=== PATIENT | female | born 1980 | race Caucasian/White ===

== ENCOUNTER 2018-03-08 23:54 | Emergency (ER) | payer MEDICAID ==
[~2018-03-08] VITALS: Ht 162.6 cm; Wt 63.6 kg
[~2018-03-08 23:54] MED LIST: CLA10T PO; CLIN150C2 PO; DIPH25CA83 PO; HYDR-568 PO; IBUP-1572 PO; IBUP-1984 PO; LEVO25TA50 PO; METH4TAB81 PO; QUET-1 PO; [UNRECOGNIZED DRUG - OTHER] PO; [UNRECOGNIZED DRUG - OTHER] PO
[2018-03-08 23:56] VITALS: BP 116/66
[2018-03-09] MEDS ORDERED: sulfamethoxazole/trimethoprim DS (800/160mg) tablet PO ONE (01:45)
[2018-03-09] MEDS ORDERED: TETanus/Pertussis (Acell)/Diphther VAC/PF (Tdap-Adult) 0.5ml syringe IMVAC ONE (01:45)
[2018-03-09] MEDS ORDERED: MUPI22OI30 TOP ×2 (01:47→11:34)
[2018-03-09] MEDS ORDERED: BACDS PO (01:47)
[2018-03-09] MEDS ORDERED: SULF1TAB49 PO (11:34)
== END 2018-03-09 02:30 | disposition home or self-care (01) ==
LOC: ER 23:54
DX: L03.116 Cellulitis of left lower limb (principal); L03.115 Cellulitis of right lower limb; I10 Essential (primary) hypertension; L08.9 Local infection of the skin and subcutaneous tissue, unspecified; F17.200 Nicotine dependence, unspecified, uncomplicated; F15.10 Other stimulant abuse, uncomplicated; F12.90 Cannabis use, unspecified, uncomplicated; Z56.0 Unemployment, unspecified; Z98.51 Tubal ligation status; Z79.899 Other long term (current) drug therapy; Z88.1 Allergy status to other antibiotic agents; Z88.8 Allergy status to other drugs, medicaments and biological substances; Z86.14 Personal history of Methicillin resistant Staphylococcus aureus infection
CPT/HCPCS: 90471; 90715; 99283; A6449

== ENCOUNTER 2018-10-16 00:04 | Emergency (ER) | payer MEDICAID ==
[~2018-10-16] VITALS: Ht 162.6 cm; Wt 51.9 kg
[~2018-10-16 00:04] MED LIST changes: +HYDR-4384 PO; -HYDR-568 PO; +MUPI15CR TOP
[2018-10-16 00:08] VITALS: BP 124/58
[2018-10-16] MEDS ORDERED: ibuprofen 200mg tablet PO ONE (01:10)
[2018-10-16] MEDS ORDERED: benzonatate 100mg capsule PO ONE (01:10)
[2018-10-16] MEDS ORDERED: pseudoephedrine 30mg tablet PO ONE (01:10)
[2018-10-16] MEDS ORDERED: ondansetron 4mg rapidly disintigrating tab PO STA (01:39)
--- NOTE | 2018-10-16 01:40 | NUR ---
PT C/O NAUSEA, ORDERED ZOFRAN ODT
[2018-10-16] MEDS ORDERED: BENZ-16 PO (02:31)
== END 2018-10-16 02:56 | disposition home or self-care (01) ==
LOC: ER 00:05
DX: J06.9 Acute upper respiratory infection, unspecified (principal); R07.89 Other chest pain; F12.90 Cannabis use, unspecified, uncomplicated; F17.200 Nicotine dependence, unspecified, uncomplicated; Z72.89 Other problems related to lifestyle; Z88.8 Allergy status to other drugs, medicaments and biological substances; Z98.890 Other specified postprocedural states; Z59.0 Homelessness
CPT/HCPCS: 71046; 99284

== ENCOUNTER 2019-02-25 19:38 | Emergency (ER) | payer MEDICAID ==
[~2019-02-25] VITALS: Ht 162.6 cm; Wt 53.1 kg
[2019-02-25 19:41] VITALS: BP 133/86
[2019-02-25] MEDS ORDERED: DOXY100C43 PO (20:05)
[2019-02-25] MEDS ORDERED: CEPH-571 PO (20:05)
== END 2019-02-25 20:19 | disposition home or self-care (01) ==
LOC: ER 19:39
DX: S00.86XA Insect bite (nonvenomous) of other part of head, initial encounter (principal); L03.211 Cellulitis of face; K02.9 Dental caries, unspecified; F12.90 Cannabis use, unspecified, uncomplicated; Z98.51 Tubal ligation status; Z56.0 Unemployment, unspecified; Z88.8 Allergy status to other drugs, medicaments and biological substances; Z79.899 Other long term (current) drug therapy; W57.XXXA Bitten or stung by nonvenomous insect and other nonvenomous arthropods, initial encounter; Y93.89 Activity, other specified; Y92.89 Other specified places as the place of occurrence of the external cause; Y99.8 Other external cause status
CPT/HCPCS: 99283

== ENCOUNTER 2019-07-07 12:47 | Emergency (ER) | payer MEDICAID ==
[~2019-07-07] VITALS: Ht 162.6 cm; Wt 59.5 kg
[~2019-07-07 12:47] MED LIST changes: +CEPH-571 PO
[2019-07-07 13:19] LABS: URINE HCG NEGATIVE (NEG)
[2019-07-07 13:21] LABS: CLARITY,URINE SLIGHTLY CLOUDY (Clear); COLOR,URINE YELLOW (Yellow); GLUCOSE, URINE NEGATIVE (Neg); KETONES,URINE NEGATIVE (Neg); LEUKOCYTE ESTERASE ,URINE SMALL (Neg); NITRITES, URINE NEGATIVE (Neg); OCCULT BLOOD,URINE NEGATIVE (Neg); PROTEIN,URINE 30 mg/dl (Neg); UROBILINOGEN,URINE 0.2 E.U/dL (0.2-1.0)
[2019-07-07 13:23] LABS: UA COLLECTION TYPE CLN CATCH MIDSTREAM
[2019-07-07 13:33] LABS: BASOPHILS # (AUTO) 0.1 X10'3 (0-0.2); BASOPHILS % (AUTO) 0.7 % (0-1); EOSINOPHILS % (AUTO) 0.4 % (0-6); HEMATOCRIT 36.3 % (35.0-45.0); HEMOGLOBIN 11.5 g/dl (12.0-16.0); LYMPHOCYTES # (AUTO) 1.8 X10'3 (1.1-4.8); LYMPHOCYTES % (AUTO) 25.2 % (21-51); MEAN CORPUSCULAR HEMOGLOBIN 23.5 PG (27.0-31.0); MEAN CORPUSCULAR HGB CONC 31.8 g/dL (33.0-36.5); MEAN CORPUSCULAR VOLUME 73.8 FL (78-98); MEAN PLATELET VOLUME 7.6 FL (7.4-10.4); MONOCYTES # (AUTO) 0.5 X10'3 (0-0.9); MONOCYTES % (AUTO) 7.2 % (2-12); NEUTROPHILS # (AUTO) 4.6 X10'3 (1.8-7.7); NEUTROPHILS % (AUTO) 66.5 % (42-75); PLATELET COUNT 358 X10'3 (140-440); RED BLOOD COUNT 4.92 X10'6 (4.20-5.60); RED CELL DISTRIBUTION WIDTH 17.4 % (11.5-14.5)
[2019-07-07 13:43] LABS: MUCUS STRANDS MODERATE /LPF (Neg)
[2019-07-07 13:44] LABS: GLUCOSE 98 MG/DL (70-104)
[2019-07-07 13:44] LABS: SQUAMOUS EPITHELIAL CELL,UR MODERATE /LPF (FEW)
[2019-07-07 13:45] LABS: ALANINE AMINOTRANSFERASE 20 U/L (12-78); ALBUMIN 3.8 G/DL (3.4-5.0); ALBUMIN/GLOBULIN RATIO 0.9 (1.1-1.5); ALKALINE PHOSPHATASE 100 IU/L (46-116); ANION GAP 9 (8-16); ASPARTATE AMINO TRANSFERASE 29 U/L (10-37); BILIRUBIN,TOTAL 0.6 MG/DL (0.1-1.0); BLOOD UREA NITROGEN 7 MG/DL (7-18); BUN/CREATININE RATIO 10.8 (6.6-38.0); CALCIUM 9.3 MG/DL (8.5-10.1); CHLORIDE 100 MMOL/L (99-107); CREATININE 0.65 MG/DL (0.40-0.90); LIPASE 130 U/L (73-393); POTASSIUM 3.6 MMOL/L (3.5-5.1); SODIUM 135 MMOL/L (135-145); TOTAL CARBON DIOXIDE 26.1 MMOL/L (24-32); TOTAL PROTEIN 8.1 G/DL (6.4-8.2); eGFR > 90 ML/MIN
[2019-07-07 13:46] LABS: COARSE GRANULAR CAST 0-3 /LPF (NEGATIVE)
[2019-07-07 13:47] LABS: BACTERIA,URINE 1+ /HPF (Neg); RBC,URINE NONE SEEN /HPF (0-2); WBC,URINE 0-4 /HPF (0-4)
[2019-07-07] MEDS ORDERED: ondansetron 4mg rapidly disintigrating tab PO ONE (14:10)
[2019-07-07] MEDS ORDERED: ONDA4TAB12 PO (15:01)
[2019-07-07 15:11] VITALS: BP 109/86
== END 2019-07-07 15:12 | disposition home or self-care (01) ==
LOC: ER 12:48
DX: N20.0 Calculus of kidney (principal); F15.10 Other stimulant abuse, uncomplicated; F17.210 Nicotine dependence, cigarettes, uncomplicated; F12.90 Cannabis use, unspecified, uncomplicated; F10.99 Alcohol use, unspecified with unspecified alcohol-induced disorder; Z98.51 Tubal ligation status; Z56.0 Unemployment, unspecified; Z88.8 Allergy status to other drugs, medicaments and biological substances; Z79.899 Other long term (current) drug therapy; Y90.9 Presence of alcohol in blood, level not specified
CPT/HCPCS: 36415; 74176; 80053; 81001; 81025; 83690; 85025; 87077; 87088; 87186; 99284

== ENCOUNTER 2021-10-24 01:25 | Inpatient (IN) | payer MEDICAID ==
[~2021-10-24] VITALS: Ht 162.6 cm; Wt 79.5 kg
[2021-10-24] VITALS (17 sets, daily range): BP systolic 112–160; BP diastolic 67–90
[~2021-10-24 01:25] MED LIST changes: +ONDA4TAB12 PO
[2021-10-24 01:43] LABS: BASOPHILS # (AUTO) 0.1 X10'3 (0-0.2); BASOPHILS % (AUTO) 0.5 % (0-1); EOSINOPHILS % (AUTO) 0.3 % (0-6); HEMATOCRIT 33.3 % (35.0-45.0); HEMOGLOBIN 10.8 g/dl (12.0-16.0); LYMPHOCYTES # (AUTO) 1.4 X10'3 (1.1-4.8); LYMPHOCYTES % (AUTO) 13.4 % (21-51); MEAN CORPUSCULAR HEMOGLOBIN 24.9 PG (27.0-31.0); MEAN CORPUSCULAR HGB CONC 32.5 g/dL (33.0-36.5); MEAN CORPUSCULAR VOLUME 76.4 FL (78-98); MEAN PLATELET VOLUME 8.4 FL (7.4-10.4); MONOCYTES # (AUTO) 0.5 X10'3 (0-0.9); MONOCYTES % (AUTO) 5.2 % (2-12); NEUTROPHILS # (AUTO) 8.2 X10'3 (1.8-7.7); NEUTROPHILS % (AUTO) 80.6 % (42-75); PLATELET COUNT 256 X10'3 (140-440); RED BLOOD COUNT 4.36 X10'6 (4.20-5.60); RED CELL DISTRIBUTION WIDTH 17.8 % (11.5-14.5); WHITE BLOOD COUNT 10.1 X10'3 (4.5-11.0)
[2021-10-24 01:58] LABS: ALANINE AMINOTRANSFERASE 30 U/L (12-78); ALBUMIN 3.6 G/DL (3.4-5.0); ALBUMIN/GLOBULIN RATIO 0.9 (1.1-1.5); ALKALINE PHOSPHATASE 92 IU/L (46-116); ANION GAP 8 (8-16); ASPARTATE AMINO TRANSFERASE 22 U/L (10-37); BILIRUBIN,TOTAL 0.1 MG/DL (0.1-1.0); BLOOD UREA NITROGEN 18 MG/DL (7-18); BUN/CREATININE RATIO 26.5 (6.6-38.0); CALCIUM 8.6 MG/DL (8.5-10.1); CHLORIDE 106 MMOL/L (99-107); CREATININE 0.68 MG/DL (0.40-0.90); GLUCOSE 116 MG/DL (70-104); POTASSIUM 4.2 MMOL/L (3.5-5.1); SODIUM 140 MMOL/L (135-145); TOTAL CARBON DIOXIDE 26.1 MMOL/L (24-32); TOTAL PROTEIN 7.4 G/DL (6.4-8.2); eGFR > 90 ML/MIN
[2021-10-24 02:05] LABS: URINE HCG NEGATIVE (NEG)
[2021-10-24 02:06] LABS: ETHANOL < 0.010 GM/DL (0.0-0.010)
[2021-10-24 02:08] LABS: CLARITY,URINE CLOUDY (Clear); GLUCOSE, URINE NEGATIVE (Neg); KETONES,URINE NEGATIVE (Neg); LEUKOCYTE ESTERASE ,URINE NEGATIVE (Neg); NITRITES, URINE NEGATIVE (Neg); OCCULT BLOOD,URINE LARGE (Neg); PROTEIN,URINE NEGATIVE (Neg); UROBILINOGEN,URINE 0.2 E.U/dL (0.2-1.0)
[2021-10-24 02:10] LABS: COLOR,URINE STRAW (Yellow); UA COLLECTION TYPE NON-SPECIFIED
[2021-10-24 02:16] LABS: URINE AMPHETAMINE SCREEN POSITIVE (Neg); URINE BARBITUATE SCREEN NEGATIVE (Neg); URINE BENZODIAZEPINES SCREEN NEGATIVE (Neg); URINE CANNABINOID SCREEN POSITIVE (Neg); URINE COCAINE SCREEN NEGATIVE (Neg); URINE METHADONE SCREEN NEGATIVE (Neg); URINE OPIATE SCREEN NEGATIVE (Neg); URINE PHENCYCLIDINE SCREEN NEGATIVE (Neg)
[2021-10-24 02:22] LABS: BACTERIA,URINE 1+ /HPF (Neg); MUCUS STRANDS NONE SEEN /LPF (Neg); RBC,URINE TNTC /HPF (0-2); SQUAMOUS EPITHELIAL CELL,UR FEW /LPF (FEW); WBC,URINE 0-4 /HPF (0-4)
[2021-10-24 02:23] LABS: AMORPHOUS PHOSPHATES 2+
[2021-10-24] MEDS ORDERED: sildenafil citrate 20mg tablet PO ONE (02:45)
[2021-10-24] MEDS ORDERED: sildenafil citrate 20mg tablet PO SCH (02:45)
[2021-10-24] MEDS ORDERED: meperidine/PF 50mg/ml syringe IV ONE ×2 (02:45→04:30)
[2021-10-24] MEDS ORDERED: ketorolac trometh. 30mg/ml inj. IV ONE (02:45)
[2021-10-24] MEDS ORDERED: normal saline 1000ML IV soln IVB ONE (02:45)
[2021-10-24] MEDS ORDERED: potassium Cl 20 mEq SR tablet PO PRN ×2 (04:15)
[2021-10-24] MEDS ORDERED: NO HOME MEDS (04:15)
[2021-10-24] MEDS ORDERED: magnesium 4gm in 100ml NS 100 ML IV PRN (04:15)
[2021-10-24] MEDS ORDERED: magnesium 2GM in 50ml NS 50 ML IV PRN (04:15)
[2021-10-24] MEDS ORDERED: morphine 2 MG/ML inj. syringe IV PRN ×2 (04:15→16:35)
[2021-10-24] MEDS ORDERED: magnesium Cl slow-release 64mg tablet PO PRN (04:15)
[2021-10-24] MEDS ORDERED: ondansetron/PF 4mg/2ml inj IV PRN ×2 (04:15→16:35)
[2021-10-24] MEDS ORDERED: potassium CL 10mEq/100ml bag 100 ML IV PRN (04:15)
[2021-10-24] MEDS ORDERED: amLODIPine 2.5mg tablet PO ONE (04:20)
[2021-10-24] MEDS: normal saline 1000ml 1,000 ML IV SCH ×3 (04:47→22:54)
--- NOTE | 2021-10-24 05:51 | NUR ---
PER DR. LISA SILVA [facility]
[2021-10-24 06:29] LABS: MAGNESIUM 2.1 MG/DL (1.5-2.4); POTASSIUM 4.2 MMOL/L (3.5-5.1)
--- NOTE | 2021-10-24 06:34 | NUR ---
Report attempted at 0630, room 350. Unsuccessful, report given Salma
[2021-10-24] MEDS: K and/or MAG REPLACEMENT MC SCH ×2 (08:00→19:57)
[2021-10-24] MEDS ORDERED: levoFLOXACIN-Levaquin 500mg/D5 100 ML IV ONE (08:40)
[2021-10-24] MEDS: nicotine 14mg patch - 24hr TD SCH (10:22)
[2021-10-24] MEDS ORDERED: iohexol 300 MG/1 ML 50ml polymer ONE (13:52)
[2021-10-24 14:56] LABS: % IRON SATURATION 8 % (11-46); IRON 30 UG/DL (49-151); TOTAL IRON BINDING CAPACITY 390 UG/DL (259-388)
[2021-10-24] MEDS ORDERED: labetalol 20mg/4ml (5mg/ml) syringe IV PRN (16:35)
[2021-10-24] MEDS ORDERED: ringers solution, lacted 1,000 ML IV SCH (16:35)
[2021-10-24] MEDS ORDERED: morphine 4 MG/ML inj SYRINge IV PRN (16:35)
[2021-10-24] MEDS ORDERED: hydrALAZINE 20mg/ml inj. IV PRN (16:35)
[2021-10-24] MEDS ORDERED: fentaNYL/PF 50MCG/1 ML 2ML syringe IV PRN ×2 (16:35)
[2021-10-24] MEDS ORDERED: FENTANYL CITRATE/PF 50 MCG/1 ML VIAL ONE (16:37)
[2021-10-24] MEDS ORDERED: midazolam 1 mg/ML 2ml injection ONE (16:37)
[2021-10-24] MEDS ORDERED: iohexol 300 MG/1 ML 50ml polymer ICATH ONE (16:40)
[2021-10-24] MEDS ORDERED: ondansetron/PF 4mg/2ml inj ONE (16:41)
[2021-10-24] MEDS ORDERED: propofol inj 20 ML IV ONE (16:41)
[2021-10-24] MEDS ORDERED: LIDOcaine 2% (20mg/ml) 5ml vial ONE (16:41)
--- NOTE | 2021-10-24 17:09 | NUR ---
Received from OR via [facility] BED , accompanied by Anesthesiologist DR SANDERS and report given by Anesthesiolgist. PT PRESENTS WITH 20G RIGHT FOREARM, VSS. Addendum: 10/24/21 at 1718 by Silvana Cardoza RN, RN Amended: Links added.
--- NOTE | 2021-10-24 17:59 | NUR ---
Report called to receiving nurse DELVIS LEONARD. Transferred via [facility] TO ROOM 350B. PT Belongings WERE LEFT IN ROOM 350B. P'S BED IN LOW LOCKED POSITION OF COMFORT WITH LEO LIGHT, PHONE AND TV IN REACH. IV POLE MOVED TO PT'S RIGHT SIDE. MONITOR HOOKED UP TO PT FOR POST OP VITALS. Special Issues communicated to receiving nurse. Addendum: 10/24/21 at 1808 by Silvana Cardoza RN RN Amended: Links added.
--- NOTE | 2021-10-24 18:05 | NUR ---
Patient just came back to her room from Recovery Room accompanied by 2 RNs. Patient a little sleepy but able to keep conversation. Denies nausea and patient came here without garay catheter. Patient was instructed to call staff if she needs to go restroom instead of getting up by herself due to fall risk
[2021-10-24] MEDS ORDERED: tamsulosin 0.4mg capsule PO SCH (21:00)
--- NOTE | 2021-10-25 06:47 | NUR ---
Problems reprioritized. Patient report given, questions answered & plan of care reviewed with Sanjana RN.
[2021-10-25 07:09] LABS: BASOPHILS % (AUTO) 0.1 % (0-1); EOSINOPHILS % (AUTO) 0 % (0-6); HEMATOCRIT 33.4 % (35.0-45.0); HEMOGLOBIN 10.8 g/dl (12.0-16.0); LYMPHOCYTES # (AUTO) 0.9 X10'3 (1.1-4.8); LYMPHOCYTES % (AUTO) 9.5 % (21-51); MEAN CORPUSCULAR HEMOGLOBIN 24.8 PG (27.0-31.0); MEAN CORPUSCULAR HGB CONC 32.2 g/dL (33.0-36.5); MEAN CORPUSCULAR VOLUME 76.9 FL (78-98); MEAN PLATELET VOLUME 8.4 FL (7.4-10.4); MONOCYTES # (AUTO) 0.5 X10'3 (0-0.9); MONOCYTES % (AUTO) 5.3 % (2-12); NEUTROPHILS # (AUTO) 8.5 X10'3 (1.8-7.7); NEUTROPHILS % (AUTO) 85.1 % (42-75); PLATELET COUNT 257 X10'3 (140-440); RED BLOOD COUNT 4.34 X10'6 (4.20-5.60); RED CELL DISTRIBUTION WIDTH 18.3 % (11.5-14.5); WHITE BLOOD COUNT 9.9 X10'3 (4.5-11.0)
[2021-10-25 07:30] LABS: ALANINE AMINOTRANSFERASE 24 U/L (12-78); ALBUMIN 2.9 G/DL (3.4-5.0); ALBUMIN/GLOBULIN RATIO 0.8 (1.1-1.5); ALKALINE PHOSPHATASE 86 IU/L (46-116); ANION GAP 8 (8-16); ASPARTATE AMINO TRANSFERASE 21 U/L (10-37); BILIRUBIN,TOTAL 0.3 MG/DL (0.1-1.0); BLOOD UREA NITROGEN 11 MG/DL (7-18); BUN/CREATININE RATIO 17.7 (6.6-38.0); CALCIUM 8.5 MG/DL (8.5-10.1); CHLORIDE 104 MMOL/L (99-107); CREATININE 0.62 MG/DL (0.40-0.90); GLUCOSE 155 MG/DL (70-104); POTASSIUM 3.9 MMOL/L (3.5-5.1); SODIUM 138 MMOL/L (135-145); TOTAL CARBON DIOXIDE 26.1 MMOL/L (24-32); TOTAL PROTEIN 6.5 G/DL (6.4-8.2); eGFR > 90 ML/MIN
[2021-10-25] MEDS: K and/or MAG REPLACEMENT MC SCH (08:00)
[2021-10-25] MEDS ORDERED: levoFLOXACIN-Levaquin 500mg/D5 100 ML IV SCH (08:00)
[2021-10-25] MEDS: nicotine 14mg patch - 24hr TD SCH (08:08)
[2021-10-25] MEDS: normal saline 1000ml 1,000 ML IV SCH (08:09)
[2021-10-25] MEDS ORDERED: LEVO750T46 PO (09:50)
--- NOTE | 2021-10-25 12:19 | NUR ---
PT VS stable, discharge care instructions and follow up discussed with pt. Belongings sent with pt. IV discontinued and intact per protocol. Pt escorted out via wheelchair and taxi voucher. CN aware.
== END 2021-10-25 12:17 | disposition home or self-care (01) | DRG 465 ==
LOC: ER 01:25 → UNDOADMIN 04:16 → ED HOLD 04:16 → SUR 3N 07:46 → UNDODISIN 10-25 12:17
PROVIDERS: ADMIT Internal Medicine; ATTEND Family Medicine
PROC: BT1F1ZZ Fluoroscopy of Left Kidney, Ureter and Bladder using Low Osmolar Contrast (ICD-10-PCS; 2021-10-24)
PROC: 0T778DZ Dilation of Left Ureter with Intraluminal Device, Via Natural or Artificial Opening Endoscopic (ICD-10-PCS; principal; 2021-10-24 16:36)
DX: N13.2 Hydronephrosis with renal and ureteral calculous obstruction (principal); D50.9 Iron deficiency anemia, unspecified; E03.9 Hypothyroidism, unspecified; F12.90 Cannabis use, unspecified, uncomplicated; F15.10 Other stimulant abuse, uncomplicated; Z20.822 Contact with and (suspected) exposure to COVID-19; F17.210 Nicotine dependence, cigarettes, uncomplicated; Z86.16 Personal history of COVID-19; Z87.442 Personal history of urinary calculi; Z98.51 Tubal ligation status; Z56.0 Unemployment, unspecified; Z88.8 Allergy status to other drugs, medicaments and biological substances; Z71.51 Drug abuse counseling and surveillance of drug abuser; Z71.6 Tobacco abuse counseling
CPT/HCPCS: 36415; 71045; 74019; 74176; 76000; 80053; 80305; 80320; 81001; 81025; 82948; 83540; 83550; 83735; 84132; 85025; 86885; 86900; 86901; 87081; 87635; 96361; 96365; 96366; 96375; 96376; 99285; A4618; C1758; C1769; C2617; G0378; J1885; J1956; J2175; J2250; J2270; J2405; J2704; J3010; J3490; J7030; Q9967

== ENCOUNTER 2022-07-19 03:21 | Emergency (ER) | payer MEDICAID ==
[~2022-07-19] VITALS: Ht 162.6 cm; Wt 72.7 kg
[~2022-07-19 03:21] MED LIST changes: -CEPH-571 PO; -CLA10T PO; -CLIN150C2 PO; -DIPH25CA83 PO; -HYDR-4384 PO; -IBUP-1572 PO; -IBUP-1984 PO; -LEVO25TA50 PO; +LEVO750T68 PO; -METH4TAB81 PO; -MUPI15CR TOP; -ONDA4TAB12 PO; -QUET-1 PO; -[UNRECOGNIZED DRUG - OTHER] PO; -[UNRECOGNIZED DRUG - OTHER] PO
[2022-07-19] MEDS ORDERED: acetaminophen 325mg tablet PO ONE (03:50)
[2022-07-19 04:37] LABS: BASOPHILS % (AUTO) 0.4 % (0-1); EOSINOPHILS % (AUTO) 0 % (0-6); HEMATOCRIT 29.9 % (35.0-45.0); HEMOGLOBIN 9.7 g/dl (12.0-16.0); LYMPHOCYTES # (AUTO) 1.1 X10'3 (1.1-4.8); MEAN CORPUSCULAR HEMOGLOBIN 25.9 PG (27.0-31.0); MEAN CORPUSCULAR HGB CONC 32.4 g/dL (33.0-36.5); MEAN CORPUSCULAR VOLUME 79.9 FL (78-98); MEAN PLATELET VOLUME 8.1 FL (7.4-10.4); MONOCYTES # (AUTO) 0.4 X10'3 (0-0.9); MONOCYTES % (AUTO) 9.7 % (2-12); NEUTROPHILS % (AUTO) 65.9 % (42-75); PLATELET COUNT 236 X10'3 (140-440); RED BLOOD COUNT 3.74 X10'6 (4.20-5.60); RED CELL DISTRIBUTION WIDTH 16.1 % (11.5-14.5); WHITE BLOOD COUNT 4.6 X10'3 (4.5-11.0)
[2022-07-19 04:47] LABS: ALANINE AMINOTRANSFERASE 21 U/L (12-78); ALBUMIN 2.9 G/DL (3.4-5.0); ALBUMIN/GLOBULIN RATIO 0.8 (1.1-1.5); ALKALINE PHOSPHATASE 85 IU/L (46-116); ANION GAP 9 (8-16); ASPARTATE AMINO TRANSFERASE 25 U/L (10-37); BILIRUBIN,TOTAL 0.1 MG/DL (0.1-1.0); BLOOD UREA NITROGEN 13 MG/DL (7-18); BUN/CREATININE RATIO 21.3 (6.6-38.0); CHLORIDE 105 MMOL/L (99-107); CREATININE 0.61 MG/DL (0.40-0.90); GLUCOSE 115 MG/DL (70-104); POTASSIUM 3.7 MMOL/L (3.5-5.1); SODIUM 137 MMOL/L (135-145); TOTAL CARBON DIOXIDE 23.5 MMOL/L (24-32); TOTAL PROTEIN 6.4 G/DL (6.4-8.2); eGFR > 90 ML/MIN
[2022-07-19 06:12] LABS: CLARITY,URINE CLOUDY (Clear); COLOR,URINE YELLOW (Yellow); GLUCOSE, URINE NEGATIVE (Neg); KETONES,URINE NEGATIVE (Neg); LEUKOCYTE ESTERASE ,URINE NEGATIVE (Neg); NITRITES, URINE NEGATIVE (Neg); OCCULT BLOOD,URINE NEGATIVE (Neg); PROTEIN,URINE NEGATIVE (Neg); UROBILINOGEN,URINE 0.2 E.U/dL (0.2-1.0)
[2022-07-19 06:13] LABS: UA COLLECTION TYPE VOIDED
[2022-07-19 06:16] LABS: MUCUS STRANDS MANY /LPF (Neg); SQUAMOUS EPITHELIAL CELL,UR MANY /LPF (FEW)
[2022-07-19 06:17] LABS: HYALINE CASTS 0-3 /LPF (NEGATIVE)
[2022-07-19 06:18] LABS: BACTERIA,URINE 1+ /HPF (Neg); RBC,URINE 0-2 /HPF (0-2); WBC,URINE 0-4 /HPF (0-4)
[2022-07-19 07:20] VITALS: BP 145/68
== END 2022-07-19 07:41 | disposition home or self-care (01) ==
LOC: ER 03:21
DX: M54.9 Dorsalgia, unspecified (principal); G89.29 Other chronic pain; Z59.00 Homelessness unspecified; E07.9 Disorder of thyroid, unspecified; F12.10 Cannabis abuse, uncomplicated; F15.10 Other stimulant abuse, uncomplicated; Z88.8 Allergy status to other drugs, medicaments and biological substances; Z79.899 Other long term (current) drug therapy
CPT/HCPCS: 36415; 74176; 80053; 81001; 85025; 99284

== ENCOUNTER 2024-01-12 13:12 | Outpatient (CLI) | payer MEDICAID | END 2024-01-12 23:59 | disposition home or self-care (01) | LOC: CARD DIAG 13:12 | PROVIDERS: ATTEND Family Medicine | DX: I08.8 Other rheumatic multiple valve diseases (principal); I27.20 Pulmonary hypertension, unspecified; R06.09 Other forms of dyspnea; I50.1 Left ventricular failure, unspecified | CPT/HCPCS: 93306 ==

== ENCOUNTER 2024-11-29 13:29 | Emergency (ER) | payer MEDICAID ==
[~2024-11-29] VITALS: Ht 160 cm; Wt 82.0 kg
[2024-11-29 14:21] LABS: BASOPHILS # (AUTO) 0.1 X10'3 (0-0.2); BASOPHILS % (AUTO) 0.8 % (0-1); EOSINOPHILS # (AUTO) 0.1 X10'3 (0-0.9); EOSINOPHILS % (AUTO) 0.9 % (0-6); HEMATOCRIT 45.2 % (35.0-45.0); HEMOGLOBIN 14.6 g/dl (12.0-16.0); LYMPHOCYTES # (AUTO) 1.9 X10'3 (1.1-4.8); LYMPHOCYTES % (AUTO) 23.8 % (21-51); MEAN CORPUSCULAR HGB CONC 32.3 g/dL (33.0-36.5); MEAN CORPUSCULAR VOLUME 80.6 FL (78-98); MEAN PLATELET VOLUME 9.5 FL (7.4-10.4); MONOCYTES # (AUTO) 0.5 X10'3 (0-0.9); MONOCYTES % (AUTO) 6.5 % (2-12); NEUTROPHILS # (AUTO) 5.3 X10'3 (1.8-7.7); PLATELET COUNT 169 X10'3 (140-440); RED BLOOD COUNT 5.61 X10'6 (4.20-5.60); RED CELL DISTRIBUTION WIDTH 18.5 % (11.5-14.5); WHITE BLOOD COUNT 7.8 X10'3 (4.5-11.0)
[2024-11-29 14:32] LABS: ALANINE AMINOTRANSFERASE 37 U/L (12-78); ALKALINE PHOSPHATASE 100 IU/L (46-116); ANION GAP 6 (8-16); ASPARTATE AMINO TRANSFERASE 30 U/L (10-37); BILIRUBIN,TOTAL 0.5 MG/DL (0.1-1.0); BLOOD UREA NITROGEN 16 MG/DL (7-18); BUN/CREATININE RATIO 20.5 (10.0-20.0); CALCIUM 8.6 MG/DL (8.5-10.1); CHLORIDE 107 MMOL/L (99-107); CREATININE 0.78 MG/DL (0.40-0.90); GLUCOSE 122 MG/DL (70-104); SODIUM 140 MMOL/L (135-145); TOTAL CARBON DIOXIDE 27.3 MMOL/L (24-32); TOTAL PROTEIN 6.1 G/DL (6.4-8.2); eCRCL 77 ML/MIN; eGFR 81 ML/MIN
[2024-11-29 14:39] LABS: PRO BRAIN NATRIURETIC PEPTIDE 2033 PG/ML (0-125)
[2024-11-29 16:53] VITALS: BP 169/123; PULSE 89; RESP 14; O2SAT 98
[2024-11-29] MEDS ORDERED: ketorolac trometh 15mg/ml vial 15 MG/ML ML IV ONE (18:25)
[2024-11-29 18:40] VITALS: TEMP 98.2
== END 2024-11-29 18:42 | disposition home or self-care (01) ==
LOC: ER 13:30
DX: R07.89 Other chest pain (principal); R06.02 Shortness of breath; I10 Essential (primary) hypertension; I27.20 Pulmonary hypertension, unspecified; F12.90 Cannabis use, unspecified, uncomplicated; F15.90 Other stimulant use, unspecified, uncomplicated; Z98.51 Tubal ligation status
CPT/HCPCS: 36415; 71045; 80053; 83880; 84484; 85025; 93005; 99285; A4615

== ENCOUNTER 2025-03-26 18:24 | Emergency (ER) | payer MEDICAID ==
[~2025-03-26] VITALS: Ht 160 cm; Wt 82.7 kg
[2025-03-26 18:44] VITALS: TEMP 98.5
[2025-03-26 19:24] LABS: MEAN PLATELET VOLUME 9.0 FL (7.4-10.4); RED CELL DISTRIBUTION WIDTH 18.5 % (11.5-14.5)
[2025-03-26 19:43] LABS: CREATININE 0.74 MG/DL (0.40-0.90); TOTAL CARBON DIOXIDE 25.2 MMOL/L (24-32); eCRCL 80 ML/MIN; eGFR 85 ML/MIN
--- NOTE | 2025-03-26 20:03 | Physician Documentation ---
History of Present Illness ~ Chief Complaint: Vaginal Bleeding Stated Complaint: VAGINAL BLEEDING Time Seen by MD: 20:01 Primary Medical Doctor: [facility] HPI Patient presents to the emergency room with some abnormal bleeding that has past week. Patient has distant history of dysfunctional uterine bleeding. She is supposed to be on blood thinners for pulmonary embolisms however she states she has been off it over the past few weeks. She denies possibility of being . She denies any abdominal pain. She denies any lightheadedness or syncope/presyncope symptoms Medication Reconciliation Allergies: Coded Allergies: citalopram hydrobromide (Verified Allergy, Unknown, RASH, 07/19/22) divalproex sodium (Verified Allergy, Unknown, RASH, 07/19/22) Scheduled Levofloxacin (Levofloxacin), 750 MG PO DAILY Past Medical History Past Medical History: Thyroid (unspecified) Past Surgical History: tubal ligation Alcohol Use: Sober Drug Use: marijuana, methamphetamine Lives with: Family Lives In: Home Occupation: unemployed Review of Systems ROS All review of systems negative except as per HPI Physical Exam Vital Signs: Temperature: 98.5, Source: Oral, Heart Rate: 83, Respiratory Rate: 16, BP: 128/94, Pulse Oximetry: 98, Weight: 82.700 Oxygen Flow Rate: 0 Physical Exam General: Patient is awake, alert, oriented x4 in no acute distress Head: Normocephalic and atraumatic. Eyes: Conjunctival normal. EOMI. PERRL. ENT: Mucous membranes moist. Neck: Supple, trachea is midline. Chest: Clear to auscultation bilaterally without rales, rhonchi, or wheezes. There is no accessory muscle use or retractions. Cardiac: RRR without murmurs, gallops, or rubs. Abd: Soft, nondistended, nontender, with normoactive bowel sounds. No guarding, rebound, or rigidity. Progress Results/Orders Results/Orders Orders - VOLODYMYR VIDES MD Hcg, Ur Ql (03/26/25 20:39) Completed Orders - VOLODYMYR VIDES MD Cbc/Diff (03/26/25 18:51) CMP (03/26/25 18:51) Ua With Microscopic (03/26/25 20:00) Vital Signs 03/26/25 03/26/25 03/26/25 18:44 20:22 20:43 Temp 98.5 Pulse 83 81 Resp 16 15 B/P (MAP) 128/94 154/106 (122) Pulse Ox 98 99 O2 Flow Rate 0 0 Laboratory Tests Test 03/26/25 19:15 03/26/25 20:00 White Blood Count 7.7 Red Blood Count 5.06 Hemoglobin 14.2 Hematocrit 43.0 Mean Corpuscular Volume 84.9 Mean Corpuscular Hemoglobin 28.0 Mean Corpuscular Hemoglobin Concent 33.0 Red Cell Distribution Width 18.5 H Platelet Count 169 Mean Platelet Volume 9.0 Neutrophils (%) (Auto) 61.4 Lymphocytes (%) (Auto) 29.1 Monocytes (%) (Auto) 7.3 Eosinophils (%) (Auto) 1.4 Basophils (%) (Auto) 0.8 Neutrophils # (Auto) 4.8 Lymphocytes # (Auto) 2.3 Monocytes # (Auto) 0.6 Eosinophils # (Auto) 0.1 Basophils # (Auto) 0.1 CBC Comment Sodium Level 141 Potassium Level 3.8 Chloride Level 108 H Carbon Dioxide Level 25.2 Anion Gap 8 Blood Urea Nitrogen 13 Creatinine 0.74 Estimated GFR/1.73 m2 85 BUN/Creatinine Ratio 17.6 Glucose Level 121 H Calcium Level 8.6 Total Bilirubin 0.5 Aspartate Amino Transf (AST/SGOT) 26 Alanine Aminotransferase (ALT/SGPT) 21 Alkaline Phosphatase 96 Total Protein 6.3 L Albumin 2.9 L Globulin 3.4 Albumin/Globulin Ratio 0.9 L Chemistry Comments Urine Specimen Description Cln catch midstream Urine Color Straw Urine Clarity Cloudy Urine pH 6.0 Urine Specific [place] >=1.030 Urine Protein 30 H Urine Glucose (UA) Negative Urine Ketones Negative Urine Occult Blood Large H Urine Nitrite Negative Urine Bilirubin Small Urine Urobilinogen 0.2 Urine Leukocyte Esterase Negative Urine RBC 50-100 Urine WBC 0-4 Urine Squamous Epithelial Cells Many Urine Calcium Oxalate Crystals Few Urine Bacteria 1+ Urine Mucus Few Volume Urine Centrifuged 10 ml Urine Comment Medical Decision Making Findings Patient presents to the emergency room for evaluation of vaginal bleeding. Differentials include but are not limited to menstrual cycle, miscarriage, anemia, ectopic therefore emergent labs indicated. No abdominal pain patient is not he had not feel she requires an ultrasound. Possible dysfunctional uterine bleeding related to perimenopausal symptoms. The need to follow up with her doctor discussed. Departure Disposition: HOME / SELF CARE / HOMELESS Impression: Primary Impression: Dysfunctional uterine bleeding Condition: Guarded Discharge Instructions: Dysfunctional Uterine Bleeding Additional Instructions: Follow up with your doctor for investigation into dysfunctional uterine bleeding Referrals: NO PRIMARY CARE PROVIDER (PCP) Education Educated: Patient Educated regarding: diagnosis, need for follow up Signature Scribe Signature: No scribe Attestation: The note accurately reflects work and decisions made by me.Voldoymyr Vides MD 03/26/25 20:15 VOLODYMYR VIDES MD Mar 26, 2025 20:03
[2025-03-26 20:22] LABS: LEUKOCYTE ESTERASE ,URINE NEGATIVE (Neg); NITRITES, URINE NEGATIVE (Neg); OCCULT BLOOD,URINE LARGE (Neg)
[2025-03-26 20:25] LABS: UA COLLECTION TYPE CLN CATCH MIDSTREAM
[2025-03-26 20:32] LABS: CAL OXALATE CRYSTALS FEW /HPF (NEGATIVE); MUCUS STRANDS FEW /LPF (Neg); SQUAMOUS EPITHELIAL CELL,UR MANY /LPF (FEW)
[2025-03-26 20:43] VITALS: BP 154/106; PULSE 81; RESP 15; O2SAT 99
[2025-03-26 21:36] LABS: URINE HCG NEGATIVE (NEG)
== END 2025-03-26 21:49 | disposition home or self-care (01) ==
LOC: ER 18:25
DX: N93.8 Other specified abnormal uterine and vaginal bleeding (principal); F12.90 Cannabis use, unspecified, uncomplicated; F15.90 Other stimulant use, unspecified, uncomplicated; Z98.51 Tubal ligation status
CPT/HCPCS: 36415; 80053; 81001; 81025; 85025; 99283

== ENCOUNTER 2025-04-21 00:22 | Emergency (ER) | payer MEDICAID ==
[~2025-04-21] VITALS: Ht 160 cm; Wt 80.6 kg
--- NOTE | 2025-04-21 01:03 | Physician Documentation ---
History of Present Illness ~ Chief Complaint: Vaginal Bleeding Stated Complaint: HEAVY BLEEDING Time Seen by MD: 00:38 Primary Medical Doctor: julia Khan This is a 44-year-old female with recent diagnosis of pulmonary embolus made in January of 2025, currently on Eliquis, presents for evaluation of vaginal bleeding that has been present on and off for the last month. She has history of irregular menses. However this is unusual for her and she is concerned because she is bleeding more and more frequently. She does have known history of fibroids. She is status post tubal ligation. No palliating or aggravating factors were elicited with the patient. She had contacted her physicians at [facility] that is started her on Eliquis, and they advised her to come to be evaluated in the emergency department. She has a recent evaluation on March 26, that yielded no significant changes as her labs were normal. She has not attempted to follow-up with the PCP or obtain a referral to be nephrology. She reports chronic shortness a breath that is proceed with a vaginal bleeding, it is unchanged. The shortness a breath is exertional and coincided with her diagnosis of pulmonary ambulance. She is compliant with all her medications. She smokes cigarettes, she drinks alcohol, she uses methamphetamines. She is homeless. Medication Reconciliation Allergies: Coded Allergies: citalopram hydrobromide (Verified Allergy, Unknown, RASH, 04/21/25) divalproex sodium (Verified Allergy, Unknown, RASH, 04/21/25) Scheduled Levofloxacin (Levofloxacin), 750 MG PO DAILY Past Medical History Past Medical History: Thyroid (unspecified) Past Surgical History: tubal ligation Alcohol Use: Sober Drug Use: marijuana, methamphetamine Lives with: Family Lives In: Home Occupation: unemployed Review of Systems ROS 10 point review of systems was performed and unless noted above in HPI is nega tive for acute process/complaint. Physical Exam Vital Signs: Temperature: 98.2, Source: Temporal, Heart Rate: 105, Respiratory Rate: 18, BP: 130/101, Pulse Oximetry: 98, Weight: 80.600 Physical Exam Physical examination: GENERAL: Awake, alert, oriented, GCS 15, no apparent distress, non-toxic appearing, answers questions, follows commands appropriately. HEENT: Atraumatic, normocephalic, pupils equal, extraocular muscles intact Active gross movements, sclerae anicteric, mucus membranes moist, no stridor. NECK: Midline, no JVD CARDIOVASCULAR: Good skin perfusion without evidence of pallor, mottling. PULMONARY: Nonlabored, symmetric chest rise, no audible wheezing, no accessory muscle use, no respiratory distress, speaking in full sentences. GASTROINTESTINAL: Not distended. NEUROLOGIC: Lucid with normal mental status. Normal facial symmetry. Moves all extremities symmetrically and with purpose. No truncal ataxia. Speech is fluid without evidence of dysarthria or aphasia, no focal deficits appreciated. EXTREMITIES: Acute deformities Skin: warm, dry PSYCHIATRIC: Normal affect, normal insight, normal concentration. Focused exam: [Pelvic exam was deferred due to lack privacy in triage] Progress Results/Orders Results/Orders Orders - DAVID WOODS DO Cbc/Diff (04/21/25 00:48) Completed Orders - DAVID WOODS DO CMP (04/21/25 00:48) Hcg Serum Ql (04/21/25 00:48) Pt Inr (04/21/25 00:48) PTT (04/21/25 00:48) Vital Signs 04/21/25 00:23 Temp 98.2 Pulse 105 Resp 18 B/P (MAP) 130/101 Pulse Ox 98 Laboratory Tests Test 04/21/25 01:39 White Blood Count 7.7 Red Blood Count 4.92 Hemoglobin 14.2 Hematocrit 42.5 Mean Corpuscular Volume 86.5 Mean Corpuscular Hemoglobin 28.9 Mean Corpuscular Hemoglobin Concent 33.4 Red Cell Distribution Width 18.8 H Platelet Count 180 Mean Platelet Volume 9.3 Neutrophils (%) (Auto) 59.7 Lymphocytes (%) (Auto) 32.1 Monocytes (%) (Auto) 6.3 Eosinophils (%) (Auto) 1.0 Basophils (%) (Auto) 0.9 Neutrophils # (Auto) 4.6 Lymphocytes # (Auto) 2.5 Monocytes # (Auto) 0.5 Eosinophils # (Auto) 0.1 Basophils # (Auto) 0.1 CBC Comment Basophilic Stippling Prothrombin Time 10.7 INR International Normalized Ratio 1.0 Activated Partial Thromboplast Time 28 Coagulation Comments Sodium Level 138 Potassium Level 3.2 L Chloride Level 104 Carbon Dioxide Level 24.7 Anion Gap 9 Blood Urea Nitrogen 22 H Creatinine 1.01 H Estimated GFR/1.73 m2 60 BUN/Creatinine Ratio 21.8 H Glucose Level 144 H Calcium Level 9.4 Total Bilirubin 0.3 Aspartate Amino Transf (AST/SGOT) 26 Alanine Aminotransferase (ALT/SGPT) 18 Alkaline Phosphatase 101 Total Protein 7.0 Albumin 3.3 L Globulin 3.7 Albumin/Globulin Ratio 0.9 L Human Chorionic Gonadotropin, Qual Negative Chemistry Comments Medical Decision Making Findings Facility Status: ED Holds, RME process The plan was discussed with the patient, who demonstrates clear understanding of the plan and is in agreement with the plan unless otherwise noted in the chart. All questions have been answered, all concerns were addressed unless otherwise documented. I was available throughout their ED stay for frequent reassessment and questions. Differential Diagnoses (considered and possible or likely): [Dysfunctional vaginal bleeding secondary to or aggravated by the fact that she has uterine fibroids and she is anticoagulated on Eliquis, anemia, anemia requiring transfusion, less likely high-output heart failure/hemorrhagic shock. Unlikely to be ectopic , unlikely miscarriage.] ??Differential Diagnoses (considered and unlikely, not requiring evaluation currently): [See above. No evidence of trauma.] MDM Data Please see [facility] for the following: Independent Historians and external Records Review. Historian: [Patient] Independent Historians: ?[Record review] Medication Management: [Reviewed medication list] Social History and determinants: [Reviewed] Please see the body of the note for the following: Any independent in terpretations of ECG, imaging studies. All vitals signs/haemodynamics, ordered tests were independently reviewed and interpreted by myself. Nursing triage complaint and vitals reviewed, additional nursing notes were reviewed as available and I agree unless otherwise noted or documented in contradiction in the chart Vital Signs: Independently reviewed Labs: Independently interpreted Imaging: Independently interpreted Old Medical Records: Independently reviewed, see [facility] for relevant summary and information Pulse Oximetry: [97%] interpreted as [normal on room air] by me Additionally notably showing: [Hemodynamics reviewed. Initially tachycardic, improved with rest alone. No evidence of hypotension respiratory distress. CBC is normal, there is no evidence of anemia at all. Coagulation panel is unremarkable. Chemistry is notable for mild dehydration. She is not . Mild hypokalemia noted.] Tests considered but not ordered include: [Ultrasound has been considerably given duration of symptoms and lack of apparent emergency, it can be done on an outpatient basis] Social Determinants of Health Impact: Patient was evaluated in [facility], or [facility] [place] to healthcare due to below par ratio of patient to medical providers. [] Comorbid Conditions Impacting Present Evaluation and Care/Treatment: [History of PE, anticoagulated patient] Management Discussions with other Healthcare Providers: [None] Treatment and Disposition Medication Management (Given or considered): [None, transfusion isn't required]. See EMR for details Consideration for Hospitalization/Escalation/Deescalation of Care: Admission for observation has been considered, [however the patient is able to tolerate p.o., their symptoms are controlled, they are able to rely on oral medications, and their chief complaint/diagnosis can be managed on outpatient basis.] ?ED Course:?[No clinical deterioration] ?Shared decision making:?[Patient is hemodynamically stable for discharge home with follow with their primary care provider. [ ] Specific and cautious return precautions provided and discussed with full understanding. Any incidental findings were also discussed and follow up recommendations given. [] All questions answered. Patient/family were able to verbalize back return precautions. Patient/family agree to plan. Copies of imaging and laboratory studies were provided.] Code status:?FULL Please see the full Electronic Medical Record for full details of nursing documentation, medications list, other records of complete past medical history and conditions, vital signs, laboratory studies, and any radiologic study inte rpretations by radiologists. Portions of this note were completed using [employer] dictation software and as a result there may exist minor errors in spelling. I have reviewed elements of past family and social history and agree as included in note. Departure Disposition: 01 HOME / SELF CARE / HOMELESS Impression: Primary Impression: Dysfunctional uterine bleeding Additional Impressions: Anticoagulated on Eliquis History of pulmonary embolism Condition: Stable Discharge Instructions: Dysfunctional Uterine Bleeding Additional Instructions: Today you were evaluated for an ongoing dysfunctional uterine bleeding in setting of anticoagulation on Eliquis. Clearly the benefits of taking Eliquis to prevent your pulmonary ambulance from growing outweigh the benefits of vaginal bleeding. There is no evidence of anemia at all. You do not require t ransfusion. As we have discussed, please discuss with the hope then referral for pelvic ultrasound to evaluate for presence of potential fibroids and further evaluate etiology of bleeding. Also request from them to refer you to OBGYN as most likely the solution for your dysfunctional vaginal bleeding we will be hysterectomy. Referrals: NO PRIMARY CARE PROVIDER (PCP) Education Educated: Patient Educated regarding: diagnosis, treatment, prognosis, need for follow up Signature Scribe Signature: No scribe Attestation: This note accurately reflects clinical decisions, work performed by myself, DO PEGGY Malik NICHOLAS M DO Apr 21, 2025 01:03
[2025-04-21 02:12] LABS: MEAN PLATELET VOLUME 9.3 FL (7.4-10.4); RED CELL DISTRIBUTION WIDTH 18.8 % (11.5-14.5)
[2025-04-21 02:17] LABS: APTT 28 SECONDS (22-32); INR 1.0 INR
[2025-04-21 02:22] LABS: CREATININE 1.01 MG/DL (0.40-0.90); TOTAL CARBON DIOXIDE 24.7 MMOL/L (24-32); eCRCL 59 ML/MIN; eGFR 60 ML/MIN
[2025-04-21 02:23] LABS: HCG SERUM QL NEGATIVE
[2025-04-21 02:59] LABS: PLATELET ESTIMATE NORMAL
[2025-04-21 03:00] VITALS: BP 132/104; PULSE 101; RESP 17; TEMP 98; O2SAT 98
== END 2025-04-21 03:05 | disposition home or self-care (01) ==
LOC: ER 00:23
DX: N93.8 Other specified abnormal uterine and vaginal bleeding (principal); F17.210 Nicotine dependence, cigarettes, uncomplicated; F12.90 Cannabis use, unspecified, uncomplicated; F15.90 Other stimulant use, unspecified, uncomplicated; Z79.01 Long term (current) use of anticoagulants; Z59.00 Homelessness unspecified; Z86.711 Personal history of pulmonary embolism; Z98.51 Tubal ligation status; Z88.8 Allergy status to other drugs, medicaments and biological substances; Z79.899 Other long term (current) drug therapy; Z56.0 Unemployment, unspecified
CPT/HCPCS: 36415; 80053; 84703; 85008; 85025; 85610; 85730; 99283